=== PATIENT | female | born 1935 | race Caucasian/White ===

== ENCOUNTER 2021-02-21 12:38 | Emergency (ER) | payer MEDICARE ==
[~2021-02-21] VITALS: Ht 167.6 cm; Wt 63.6 kg
[2021-02-21] MEDS ORDERED: IV NORMAL SALINE 1000ML BAG 1,000 ML IV ONE (13:15)
--- NOTE | 2021-02-21 13:23 | PHYS DOC ---
Past Medical History Past Surgical History: Cholecystectomy, Hysterectomy Additional Past Surgical Histo: TRICUSPID VALVE REPAIR General Adult EDM: Chief Complaint: HYPOTENSION HPI: HPI: Patient is a 85-year-old female who presents to the emergency department complaining of low blood pressure at home. Patient reports approximately 9 AM she took 1 tablet of 4 mg Zanaflex and approximately 15 minutes later started to feel very heavy. Patient called 911 and was found to be hypotensive and was transported to the emergency department here for evaluation. Patient reports a similar episode a few weeks ago when she took 2 tablets of 4 mg Xanax and approximately 15 minutes later felt the same, was transported to [facility] emergency department where she was treated with IV fluids and discharged home. Patient reports a history of chronic low back pains that have required muscle relaxers, she had not taken Zanaflex in the past however was prescribed by her primary care physician Dr. Rojas. Patient thought she may have overdosed herself with the 2 tablets taken earlier in the month. Patient now thinks she may be overly sensitive to this medication. Patient currently denies chest pains, shortness of breath, chest or nasal congestion, denies dizziness, syncop al or near syncopal episodes. Patient denies headaches, visual disturbances, denies homicidal or suicidal ideation. Patient denies other physical complaints or physical concerns. Patient does have a history of atrial fibrillation, takes metoprolol for rate control, Eliquis daily. Review of Systems: Review of Systems: 14 body systems of review of systems have been reviewed. See HPI for pertinent positives and negative responses, otherwise all other systems are negative, n onpertinent or noncontributory. Constitutional: Negative except as outlined in HPI above. Skin: Negative except as outlined in HPI above. Eyes: Negative except as outlined in HPI above. HENT: Negative except as outlined in HPI above. Respiratory: Negative except as outlined in HPI above. Cardiovascular: Negative except as outlined in HPI above. GI: Negative except as outlined in HPI above. : Negative except as outlined in HPI above. Musculoskeletal: Negative except as outlined in HPI above. Integument: Negative except as outlined in HPI above. Neurologic: Negative except as outlined in HPI above. Endocrine: Negative except as outlined in HPI above. Lymphatic: Negative except as outlined in HPI above. Psychiatric: Negative except as outlined in HPI above. Heart Score: C/O Chest Pain: No Risk Factors: Risk Factors: DM, Current or recent (<one month) smoker, HTN, HLP, family history of CAD, obesity. Risk Scores: Score 0 - 3: 2.5% MACE over next 6 weeks - Discharge Home Score 4 - 6: 20.3% MACE over next 6 weeks - Admit for Clinical Observation Score 7 - 10: 72.7% MACE over next 6 weeks - Early Invasive Strategies Physical Exam: PE: Constitutional: Well developed, well nourished, no acute distress, non-toxic appearance. 85-year-old female in no apparent distress. HENT: Normocephalic, atraumatic. Eyes: Conjunctiva normal, no discharge. Neck: Normal range of motion, no stridor. Cardiovascular: No cyanosis appreciated, distal cap refill less than 2 seconds. Irregular heart rhythm per auscultation, bedside monitor shows atrial fibrillation. Controlled rate at 90 bpm. Lungs & Thorax: Patient is in no respiratory distress, no audible adventitious lung sounds appreciated. Abdomen: Nontender, no abnormalities noted. Skin: Warm, dry, no erythema, no rash. Back: No tenderness, no deformities. Extremities: No tenderness, no cyanosis, no clubbing, ROM intact, no edema. Neurologic: Alert and oriented X 3, normal motor function, normal sensory function, no focal deficits noted. Psychologic: Affect normal, judgement normal, mood normal. Current Patient Data: Vital Signs: Vital Signs Date Time Temp Pulse Resp B/P (MAP) Pulse Ox O2 Delivery O2 Flow Rate FiO2 02/21/21 12:51 97.5 74 17 76/46 (56) 99 Room Air 97.5 EKG: EKG: [] Radiology/Procedures: Radiology/Procedures: [] Course & Med Decision Making: Course & Med Decision Making Pertinent Labs and Imaging studies reviewed. (See chart for details) 85-year-old female, vital signs reviewed, presents to the emergency department concerning hypotension after taking Zanaflex for chronic low back pain. Patient arrives in no pain or discomfort however blood pressure 74/49. Patient had a similar episode to Zanaflex approximately 1 month ago when she took 2 tablets. Today she only took 1 tablet of Zanaflex, discussed with patient this is most likely an adverse medication reaction and to not take any further Zanaflex for her chronic low back pains. Discussed with patient will treat in the emergency department today with 1 L normal saline, monitor blood pressure, when normotensive will attempt ambulation in the emergency department if no returning signs of syncope or near syncope or hypotensive episodes will discharge to home, patient gave verbal understanding of and is amenable to ED planning. After period of time, patient's blood pressure 99/59, remains nontoxic in appearance, IV normal saline continues to infuse, will continue to monitor. After period of time, patient remains nontoxic in appearance, has no complaints of dizziness or feelings of heaviness. Orthostatic blood pressure performed by myself, lying 122/72 with heart rate 77, standing 124/81, heart rate 84, there are no complaints of dizziness, patient walked approximately 100 feet in ED without complaints of dizziness or near syncope or syncopal episodes. Patient reports she feels fine now and wishes to go home. Denies chest pains or shortness of breath or dizziness or visual disturbances. Discussed with patient at length to stop taking Zanaflex for her chronic back pains, to follow-up with her primary care physician to discuss other muscle relaxer medications. Patient gave verbal understanding of and is amenable to ED discharge planning. Discussed with the patient all findings and diagnostic testing as well as the need to follow-up with their primary care provider for further evaluation and treatment or return to the ED if any new or worsening symptoms. Strict return precautions were also discussed at length, the patient voiced understanding and agreement with the discharge planning. The patient was nontoxic in appearance, in no apparent distress, and hemodynamically stable at the time of disposition. Dragon Disclaimer: Nuvia Disclaimer: This electronic medical record was generated, in whole or in part, using a voice recognition dictation system. Departure Departure Impression: Primary Impression: Orthostatic hypotension Disposition: HOME / SELF CARE / HOMELESS Condition: GOOD Referrals: DAMIEN ROJAS MD Patient Instructions: Orthostatic Hypotension Additional Instructions: You were seen today in the emergency department after having a near passing out spell from most likely taking your Zanaflex muscle relaxer medication. Your blood pressure was very low when you arrived in the emergency department, you were treated with 1 L of normal saline intravenously, your symptoms resolved, you no longer have hypotension, your blood pressure is normal, you no longer have dizziness spells or feelings of heaviness. As we discussed, do not take any more of your Zanaflex muscle relaxer for your back pains. Please follow-up with Dr. Carrillo to discuss other forms of pain control. Please let Dr. Rojas know of your adverse medication reaction to your Zanaflex. Return to the emergency department immediately for worsening symptoms, return of symptoms, or other concerns. Thank you for visiting our Emergency Department. It was a pleasure taking care of you today in the emergency department and we appreciate you trusting us with your care. If any additional problems come up don't hesitate to return to visit us. Please follow up with your primary care provider so they can plan additional care if needed and know about the problem that you had. If symptoms worsen come back to the Emergency Department. Any concerning symptoms that start such as chest pain, shortness of air, weakness or numbness on one side of the body, running high fevers or any other concerning symptoms return to the ER. EMERGENCY DEPARTMENT GENERAL DISCHARGE INSTRUCTIONS Thank you for coming to [facility] Department (ED) today and trusting us with you care. We trust that you had a positive experience in our Emergency Department. If you wish to speak to the department management, you may call the Director at [phone]. YOUR FOLLOW UP INSTRUCTIONS ARE FOLLOWS: 1. Do you have a private Doctor? If you do not have a private doctor, please ask for a resource list of physicians or clinics that may be able to assist you with follow up care. 2. The Emergency Physicain has interpreted your x-rays. The X-Ray specialist will also review them. If there is a change in the findings, you will be notified in 48 hours when at all possible. 3. A lab test or culture has been done, your results will be reviewed and you will be notified if you need a change in treatment. ADDITIONAL INSTRUCTIONS AND INFORMATION: 1. Your care today has been supervised by a physician who is specially trained in emergency care. Many problems require more than one evaluation for a complete diagnosis and treatment. We recommend that you schedule your follow up appointment as recommended to ensure complete treatment of you illness or injury. If you are unable to obtain follow up care and continue to have a problem, or if your condition worsens, we recommend that you return to the ED. 2. We are not able to safely determine your condition over the phone nor are we able to give sound medical advice over the phone. For these safety reasons, if you call for medical advice we will ask you to come to the ED for further evaluation. 3. If you have any questions regarding these discharge instructions please call the ED at [phone]. SAFETY INFORMATION: In the interest of safety, wellness, and injury prevention; we encourage you to wear your sealbelt, if you smoke; quite smoking, and we encourage family to use a protective helmet for bicycling and other sporting events that present an increased risk for head injury. IF YOUR SYMPTOMS WORSEN OR NEW SYMPTOMS DEVELOP, OR YOU HAVE CONCERNS ABOUT YOUR CONDITION; OR IF YOUR CONDITION WORSENS WHILE YOU ARE WAITING FOR YOUR FOLLOW UP APPOINTMENT; EITHER CONTACT YOUR PRIMARY CARE DOCTOR, THE PHYSICIAN WHOSE NAME AND NUMBER YOU WERE GIVEN, OR RETURN TO THE ED IMMEDIATELY. DAMIEN REHMAN APRN Feb 21, 2021 13:23
[2021-02-21 15:35] VITALS: BP 118/64
== END 2021-02-21 16:32 | disposition home or self-care (01) ==
LOC: EDBD 12:38 → ER 12:38
DX: I95.1 Orthostatic hypotension (principal)
CPT/HCPCS: 96360; 99285; J7030